=== PATIENT | female | born 1990 | race American Indian/Alaskan Native ===

== ENCOUNTER 2017-10-23 06:42 | Day surgery (SDC) | payer MEDICAID ==
[2017-10-23] MEDS ORDERED: WATER FOR IRRIG STERILE IR ONE (08:41)
--- NOTE | 2017-10-23 13:20 | Anesthesia Day of Surgery ---
Anesthesia Day of Surgery - Day of Surgery Patient Examined: Yes Patient H&P Reviewed: Yes Patient is NPO: Yes
--- NOTE | 2017-10-23 13:20 | Anesthesia Consultation ---
Anesthesia Consult and Med Hx Date of service: 10/23/17 - Airway Anesthetic Teeth Evaluation: Good ROM Head & Neck: Adequate Mental/Hyoid Distance: Adequate Mallampati Class: Class III Intubation Access Assessment: Possibly Difficult - Pulmonary Exam CTA: Yes - Cardiac Exam Cardiac Exam: RRR - Pre-Operative Health Status ASA Pre-Surgery Classification: ASA3 Proposed Anesthetic Plan: MAC - Pulmonary Hx Sleep Apnea: Yes (HIGH RISK. not diagnosed) - Gastrointestinal Hx Gastroesophageal Reflux Disease: Yes - Other Systems Hx Obesity: Yes
[2017-10-23] MEDS ORDERED: NACL 0.9% 1000 ML 1,000 ML IV SCH (14:00)
[2017-10-23] MEDS ORDERED: DIPRIVAN 10 MG/ML IV ONE (14:36)
--- NOTE | 2017-10-23 14:39 | Post Anesthesia Evaluation ---
- Post Anesthesia Evaluation Patient Participated: Yes Airway Patent: Yes Stable Respiratory Function: Yes Nausea/Vomiting: No Temp > 96.8F: Yes Pain Manageable: Yes Adequeate Hydration: Yes Anesthesia Complications: No
[2017-10-23] MEDS ORDERED: HURRICAINE ONE 20% TOPICAL SPRAY MM ×2 (14:40→17:16)
--- NOTE | 2017-10-23 15:02 | Discharge Summary ---
Providers - Providers Attending physician: MASOOD MIRANDA Primary care physician: OPERATIONS ACCOUNTANT Hospitalization Reason for admission: egd Procedures: egd Hospital course: 27 y.o. F presented for EGD for hx of morbid obesity and dyspepsia. She tolerated procedure well. She was discharged home the same day. Disposition: - TO HOME OR SELFCARE Core Measure Documentation - Palliative Care Palliative Care/ Comfort Measures: Not Applicable - Core Measures Any of the following diagnoses?: none Exam - Physical Exam Narrative exam: no change from prior - Constitutional Vitals: Temp Pulse Resp BP Pulse Ox 98.3 F 85 18 148/99 97 10/23/17 14:48 10/23/17 14:48 10/23/17 14:48 10/23/17 14:48 10/23/17 14:48 Plan Follow up with: ANGEL CHAVES MD [Primary Care Provider] - 7 Days
--- NOTE | 2017-10-23 15:04 | Operative Report ---
Operative Report Operative Report: OPERATIVE REPORT - EGD DATE 10/23/17 SURGERY: Upper endoscopy. SURGEON: Dr. Simmons CRANE SERVICE TECHNICIAN: Shawn GAN PRE OP DX: Morbid obesity, dyspepsia POST OP DX: small hiatal hernia TYPE OF ANESTHESIA: MAC. ESTIMATED BLOOD LOSS: None. COMPLICATIONS: None. SPECIMENS REMOVED: None. FINDINGS: 1. Small hiatal hernia. 2. Otherwise, normal esophagus, stomach and first portion of duodenum. INDICATIONS:INDICATION FOR PROCEDURE: Patient is a 27-year-old female with a long history of morbid obesity. She is planned to have a weight loss procedure and is here for preoperative planning EGD. PROCEDURE DETAILS: After consent was reviewed, patient was taken back to the operating room where patient was placed in the left lateral decubitus position and a bite block was placed in the mouth. After a time-out was called, MAC anesthesia was initiated. I then passed the endoscope into her oropharynx, into her esophagus, visualized the entire esophagus, which was all within normal limits. I then visualized the stomach and the first portion of the duodenum and there were no abnormalities I could clearly visualize. I then retroflexed the scope in the stomach and visualized the hiatus and I could see a small hiatal hernia. I then desufflated the stomach and removed the endoscope. Patient tolerated procedure well and was transferred to recovery room in good and stable condition.
[2017-10-23 15:21] VITALS: BP 141/84
[2017-10-23] MEDS ORDERED: HURRICAINE ONE 20% TOPICAL SPRAY MM NR (19:00)
== END 2017-10-23 06:43 | disposition home or self-care (01) ==
LOC: GIO 06:42
PROVIDERS: ATTEND Specialist
DX: K44.9 Diaphragmatic hernia without obstruction or gangrene (principal); K21.9 Gastro-esophageal reflux disease without esophagitis; E66.01 Morbid (severe) obesity due to excess calories; G47.30 Sleep apnea, unspecified; Z68.42 Body mass index [BMI] 45.0-49.9, adult
CPT/HCPCS: 43235; 81025; J2704; J7030